=== PATIENT | female | born 1955 | race Caucasian/White ===

== ENCOUNTER 2019-04-02 13:46 | Outpatient (CLI) | payer OTHER ==
[~2019-04-02 13:46] MED LIST: ESTR1PAT81 TP; LEVO125T PO; MULT-208 PO
[2019-04-02 14:39] LABS: BASOPHILS # (AUTO) 0.06 x10^3/uL (0-0.1); BASOPHILS % (AUTO) 1 % (0-1); EOSINOPHILS # (AUTO) 0.08 x10^3/uL (0-0.4); EOSINOPHILS % (AUTO) 1 % (1-7); LYMPHOCYTES # (AUTO) 2.97 x10^3/uL (1-3.4); LYMPHOCYTES % (AUTO) 34 % (22-44); MD NO; MEAN CORPUSCULAR HEMOGLOBIN 29.4 pg (27.0-34.8); MEAN CORPUSCULAR VOLUME 88.9 fL (80-100); MEAN PLATELET VOLUME 7.7 fL (7.4-10.4); MONOCYTES # (AUTO) 0.57 x10^3/uL (0.2-0.8); MONOCYTES % (AUTO) 7 % (2-9); NEUTROPHILS # (AUTO) 5.03 x10^3/uL (1.8-6.8); NEUTROPHILS % (AUTO) 58 % (42-75); PLATELET COUNT 308 x10^3/uL (130-400); RED BLOOD COUNT 4.97 x10^6/uL (3.82-5.3); RED CELL DISTRIBUTION WIDTH 13.2 % (9.6-15.2)
[2019-04-02 14:50] LABS: MICROSCOPIC AUTO
[2019-04-02 14:51] LABS: ALANINE AMINOTRANSFERASE 23 U/L (12-78); ALBUMIN 3.9 g/dL (3.4-5.0); ANION GAP 4 mmol/L (5-15); CALCIUM 8.9 mg/dL (8.5-10.1); CHLORIDE 108 mmol/L (98-107)
[2019-04-02 14:54] LABS: ALKALINE PHOSPHATASE 118 U/L (45-117); BILIRUBIN,TOTAL 0.3 mg/dL (0.2-1.0); TOTAL PROTEIN 7.3 g/dL (6.4-8.2)
[2019-04-02 14:57] LABS: CULTURE INDICATED? NO
== END 2019-04-02 23:59 | disposition home or self-care (01) ==
LOC: STAR 13:46
PROVIDERS: ATTEND Obstetrics & Gynecology Gynecology
DX: Z01.818 Encounter for other preprocedural examination (principal); N95.0 Postmenopausal bleeding; N84.0 Polyp of corpus uteri
CPT/HCPCS: 36415; 71046; 80053; 81001; 85025; 93005

== ENCOUNTER 2019-04-10 05:51 | Day surgery (SDC) | payer OTHER ==
[~2019-04-10] VITALS: Ht 170.2 cm; Wt 65.0 kg
[2019-04-10] MEDS ORDERED: LACTATED RINGERS 1,000 ML IV SCH (06:13)
[2019-04-10] MEDS ORDERED: EPINEPHRINE 1 MG/ML, 1ML ONE (06:38)
[2019-04-10] MEDS ORDERED: FLUORESCEIN SODIUM 500 MG/5 ML ONE (06:38)
[2019-04-10] MEDS ORDERED: SILVER NITRATE STICK TP ONE (06:38)
[2019-04-10] MEDS ORDERED: LIDOCAINE 1%, 20ML ONE (06:39)
[2019-04-10] MEDS ORDERED: ESTR50GE VG (06:48)
[2019-04-10] MEDS ORDERED: FENTANYL PF 250 MCG/5ML ONE (07:21)
[2019-04-10] MEDS ORDERED: MIDAZOLAM 1 MG/ML, 2ML ONE (07:21)
[2019-04-10] MEDS ORDERED: KETOROLAC 30 MG/1 ML ONE (07:27)
[2019-04-10] MEDS ORDERED: PROPOFOL 50 ML ONE (07:35)
[2019-04-10] MEDS ORDERED: CEFAZOLIN 1,000 MG ONE (07:38)
[2019-04-10] MEDS ORDERED: GLYCOPYRROLATE 0.2MG/1ML, 5ML ONE (07:38)
[2019-04-10] MEDS ORDERED: DEXAMETHASONE 4 MG/ML, 1ML ONE (07:38)
[2019-04-10] MEDS ORDERED: ONDANSETRON 2MG/ML, 2ML ONE (07:38)
[2019-04-10] MEDS ORDERED: ROCURONIUM 10MG/ML,5ML ONE (07:38)
[2019-04-10] MEDS ORDERED: NEOSTIGMINE 1 MG/ML, 10ML ONE (07:38)
[2019-04-10] MEDS ORDERED: SUCCINYLCHOLINE 20 MG/ML, 10ML ONE (07:38)
[2019-04-10] MEDS ORDERED: PROPOFOL 10 MG/ML, 20ML ONE (07:38)
[2019-04-10] MEDS ORDERED: ACETAMINOPHEN 325 MG TABLET PO PRN (08:00)
[2019-04-10] MEDS ORDERED: PROMETHAZINE 25 MG/ML, 1ML IV PRN (08:00)
[2019-04-10] MEDS ORDERED: OXYcodone 5 MG/5 ML ORAL.SOL UDC PO PRN (08:00)
[2019-04-10] MEDS ORDERED: LABETALOL 5MG/ML, 20ML IV PRN (08:00)
[2019-04-10] MEDS ORDERED: hydrALAzine 20 MG/ML, 1ML IV PRN (08:00)
[2019-04-10] MEDS ORDERED: FENTANYL PF 100 MCG/2ML IV PRN (08:00)
[2019-04-10] MEDS ORDERED: HYDROmorphone 2 MG/ML, 1ML IVPush PRN (08:00)
[2019-04-10] MEDS ORDERED: DIAZEPAM 5 MG/ML, 2ML IVPush PRN (08:00)
[2019-04-10] MEDS ORDERED: KETOROLAC 30 MG/1 ML IV PRN (08:00)
[2019-04-10] MEDS ORDERED: MEPERIDINE/PF 25MG/0.5ML IVPush PRN (08:00)
[2019-04-10] MEDS ORDERED: ALBUTEROL SULFATE 2.5 MG/3 ML NPPB PRN (08:00)
== END 2019-04-10 10:27 | disposition home or self-care (01) ==
LOC: OUT 05:51
PROVIDERS: ATTEND Obstetrics & Gynecology Gynecology
DX: N95.0 Postmenopausal bleeding (principal); N84.0 Polyp of corpus uteri; C54.1 Malignant neoplasm of endometrium; D25.0 Submucous leiomyoma of uterus; Z88.8 Allergy status to other drugs, medicaments and biological substances
CPT/HCPCS: 58120; 58561; 88305; 88341; 88342; J0171; J0690; J1100; J1885; J2250; J2405; J2704; J3010; J7120; 71046; J2710; J0330

== ENCOUNTER → 2019-05-21 | Outpatient (CLI) | payer OTHER ==
[~2019-05-21] MED LIST changes: +ESTR50GE VG
[2019-05-21 13:45] LABS: BASOPHILS # (AUTO) 0.06 x10^3/uL (0-0.1); BASOPHILS % (AUTO) 1 % (0-1); EOSINOPHILS # (AUTO) 0.09 x10^3/uL (0-0.4); EOSINOPHILS % (AUTO) 1 % (1-7); LYMPHOCYTES # (AUTO) 2.33 x10^3/uL (1-3.4); LYMPHOCYTES % (AUTO) 35 % (22-44); MD NO; MEAN CORPUSCULAR HEMOGLOBIN 29.2 pg (27.0-34.8); MEAN CORPUSCULAR HGB CONC 32.8 g/dL (32.4-35.8); MEAN CORPUSCULAR VOLUME 89.2 fL (80-100); MONOCYTES # (AUTO) 0.43 x10^3/uL (0.2-0.8); MONOCYTES % (AUTO) 7 % (2-9); NEUTROPHILS # (AUTO) 3.69 x10^3/uL (1.8-6.8); NEUTROPHILS % (AUTO) 56 % (42-75); PLATELET COUNT 275 x10^3/uL (130-400); RED BLOOD COUNT 4.77 x10^6/uL (3.82-5.3)
[2019-05-21 13:54] LABS: ALANINE AMINOTRANSFERASE 27 U/L (12-78); ALBUMIN 3.8 g/dL (3.4-5.0); ANION GAP 6 mmol/L (5-15); CALCIUM 8.8 mg/dL (8.5-10.1); CHLORIDE 110 mmol/L (98-107)
[2019-05-21 13:55] LABS: INTERNATIONAL NORMALIZED RATIO 0.95 (0.93-1.1)
[2019-05-21 13:57] LABS: ALKALINE PHOSPHATASE 122 U/L (45-117); BILIRUBIN,TOTAL 0.4 mg/dL (0.2-1.0); CREATININE 0.52 mg/dL (0.55-1.02)
== END | disposition home or self-care (01) ==
LOC: STAR 12:46
PROVIDERS: ATTEND Specialist
DX: C54.1 Malignant neoplasm of endometrium (principal); N83.209 Unspecified ovarian cyst, unspecified side; N95.0 Postmenopausal bleeding; Z79.890 Hormone replacement therapy; Z90.710 Acquired absence of both cervix and uterus
CPT/HCPCS: 36415; 80053; 85025; 85610; 85730; 86304

== ENCOUNTER 2019-05-28 07:17 | Day surgery (SDC) | payer OTHER ==
[~2019-05-28] VITALS: Ht 170.2 cm; Wt 63.4 kg
[2019-05-28] MEDS ORDERED: LACTATED RINGERS 1,000 ML IV SCH (07:49)
[2019-05-28 07:54] VITALS: BP 132/85
[2019-05-28] MEDS ORDERED: CEFOTETAN PMX 2GM/50ML 50 ML IV ONE (09:16)
[2019-05-28] MEDS ORDERED: MIDAZOLAM 1 MG/ML, 2ML ONE (11:47)
[2019-05-28] MEDS ORDERED: BUPIVACAINE/PF 0.25% ONE (11:47)
[2019-05-28] MEDS ORDERED: INDOCYANINE GREEN 25 MG VIAL ONE (11:47)
[2019-05-28] MEDS ORDERED: FENTANYL PF 250 MCG/5ML ONE (11:48)
[2019-05-28] MEDS ORDERED: PROMETHAZINE 25 MG/ML, 1ML ONE (12:08)
[2019-05-28] MEDS ORDERED: SCOPOLAMINE PATCH, 1.5MG PATCH.TD72 TD ONE (12:11)
[2019-05-28] MEDS ORDERED: GLYCOPYRROLATE 0.2MG/1ML, 5ML ONE (12:16)
[2019-05-28] MEDS ORDERED: DEXMEDETOMIDINE 200 MCG/2 ML ONE (12:16)
[2019-05-28] MEDS ORDERED: NEOSTIGMINE 1 MG/ML, 10ML ONE (12:16)
[2019-05-28] MEDS ORDERED: OXYcodone 5 MG/5 ML ORAL.SOL UDC PO PRN (13:00)
[2019-05-28] MEDS ORDERED: ACETAMINOPHEN 325 MG TABLET PO PRN (13:00)
[2019-05-28] MEDS ORDERED: MEPERIDINE/PF 25MG/ML,1ML IVPush PRN (13:00)
[2019-05-28] MEDS ORDERED: PROMETHAZINE 25 MG/ML, 1ML IV PRN (13:00)
[2019-05-28] MEDS ORDERED: hydrALAzine 20 MG/ML, 1ML IV PRN (13:00)
[2019-05-28] MEDS ORDERED: LIDOCAINE-MPF 2% ,5ML ONE (13:23)
[2019-05-28] MEDS ORDERED: DEXAMETHASONE 4 MG/ML, 1ML ONE (13:23)
[2019-05-28] MEDS ORDERED: PROPOFOL 10 MG/ML, 20ML ONE (13:23)
[2019-05-28] MEDS ORDERED: SUGAMMADEX 200 MG/2 ML IVPush ONE (13:23)
[2019-05-28] MEDS ORDERED: ROCURONIUM 10MG/ML,5ML ONE (13:23)
[2019-05-28] MEDS ORDERED: ONDANSETRON 2MG/ML, 2ML ONE (13:23)
[2019-05-28] MEDS ORDERED: OXYcodone 5 MG/5 ML ORAL.SOL UDC ONE (14:22)
[2019-05-28] MEDS ORDERED: FENTANYL PF 100 MCG/2ML ONE (14:22)
[2019-05-28] MEDS: FENTANYL PF 100 MCG/2ML IV PRN ×2 (14:26→14:32)
[2019-05-28] MEDS ORDERED: HYDROmorphone 1 MG/ML, 1ML INJ ONE (14:39)
[2019-05-28] MEDS: HYDROmorphone 2 MG/ML, 1ML IVPush PRN ×2 (14:54→15:04)
== END 2019-05-28 19:33 | disposition home or self-care (01) ==
LOC: OUT 07:17
PROVIDERS: ATTEND Specialist
DX: C54.1 Malignant neoplasm of endometrium
CPT/HCPCS: 36415; 38570; 58552; 74018; 86850; 86900; 86923; 88112; 88305; 88307; 88331; 88333; J1100; J1170; J2250; J2405; J2704; J2710; J3010; J3490; S2900